=== PATIENT | female | born 1990 | race Caucasian/White ===

== ENCOUNTER → 2023-12-13 09:28 | Outpatient (REF) | payer BC, SELFPAY | LOC: WDC 09:28 | PROVIDERS: ATTENDING PHYSICIAN Nurse Practitioner Family; FAMILY PHYSICIAN Nurse Practitioner Adult Health | DX: N64.4 Mastodynia (principal); N63.21 Unspecified lump in the left breast, upper outer quadrant | CPT/HCPCS: 76642; 77062; 77066 ==

== ENCOUNTER 2025-01-28 19:36 | Inpatient (IN) | payer BC, SELFPAY ==
[2025-01-28 19:56] VITALS: BMI 28.9
[2025-01-28] MEDS: LR 1000 IV ×2 (20:25→21:46)
[2025-01-28 20:34] LABS: Hematocrit 32.1 % (37.0-47.0); Hemoglobin 11.3 g/dL (12.0-16.0); Mean Corp Hgb Conc. 35.2 g/dL (33.0-37.0); Mean Corpuscular Volume 84.5 fL (81.0-99.0); Nucleated Red Blood Cells % 0 %; Platelet Count 231 10^3/uL (130-400); Red Cell Dist. Width 12.7 % (11.5-14.5)
[2025-01-28 20:43] VITALS: BP 114/65
[2025-01-28] MEDS: PITOCIN 30 UNITS/NSS 500 ML IV (21:14)
[2025-01-28] MEDS: SUBLIMAZE 100 MCG EPIDURAL (21:30)
[2025-01-28] MEDS: FENTANYL/BUPIVACAINE 100 EPIDURAL (21:31)
[2025-01-29] MEDS: LR 1000 IV (02:00)
[2025-01-29] MEDS: FENTANYL/BUPIVACAINE 100 EPIDURAL (05:54)
[2025-01-29] MEDS: SYNTHROID 50 MCG PO (06:22)
[2025-01-29] MEDS: PITOCIN 30 UNITS/NSS 500 ML IV (08:00)
[2025-01-29] MEDS: TYLENOL 650 MG PO ×2 (14:11→20:25)
[2025-01-29] MEDS: MOTRIN 600 MG PO ×2 (14:12→20:25)
[2025-01-29] MEDS: COLACE 100 MG PO (19:54)
--- NOTE | 2025-01-30 02:24 | DOWNTIME ---
There was a [employer] Downtime on 01/30/2025 from 0100 to 01/30/2025 at 0220. Downtime documentation of patient's care, including medication administrations, has been reconciled in the electronic record per guidelines. Refer to the
patient's paper chart under the miscellaneous tab to see printed paper medication records and downtime forms.
[2025-01-30] MEDS: MOTRIN 600 MG PO ×2 (04:44→09:51)
[2025-01-30 04:58] LABS: Hematocrit 25.8 % (37.0-47.0); Hemoglobin 8.7 g/dL (12.0-16.0)
[2025-01-30] MEDS: SYNTHROID 50 MCG PO (06:28)
[2025-01-30] MEDS: TYLENOL 650 MG PO (09:51)
[2025-01-30] MEDS: FEOSOL 325 MG PO (09:52)
[2025-01-30] MEDS: ZOLOFT 25 MG PO (09:52)
[2025-01-30] MEDS: COLACE 100 MG PO (09:56)
[2025-01-30 14:19] LABS: Syphilis/T. pallidum Ab Reflex Negative (Negative)
== END 2025-01-30 13:04 | disposition home or self-care (01) | DRG 807 ==
LOC: LDRP 19:36
PROVIDERS: ADMITTING PHYSICIAN Obstetrics & Gynecology
PROC: 3E033VJ Introduction of Other Hormone into Peripheral Vein, Percutaneous Approach (ICD-10-PCS; 2025-01-28)
PROC: 0HQ9XZZ Repair Perineum Skin, External Approach (ICD-10-PCS; 2025-01-29)
PROC: 6A550ZT Pheresis of Cord Blood Stem Cells, Single (ICD-10-PCS; 2025-01-29)
PROC: 10E0XZZ Delivery of Products of Conception, External Approach (ICD-10-PCS; 2025-01-29)
DX: O48.0 Post-term pregnancy (principal); Z37.0 Single live birth; Z3A.40 40 weeks gestation of pregnancy; O70.0 First degree perineal laceration during delivery; O99.284 Endocrine, nutritional and metabolic diseases complicating childbirth; E03.9 Hypothyroidism, unspecified; O99.344 Other mental disorders complicating childbirth; F41.9 Anxiety disorder, unspecified; F32.A Depression, unspecified; O76 Abnormality in fetal heart rate and rhythm complicating labor and delivery; Z79.890 Hormone replacement therapy; Z88.1 Allergy status to other antibiotic agents; Z88.0 Allergy status to penicillin
CPT/HCPCS: 36415; 85014; 85018; 85025; 86780; 86850; 86900; 86901